=== PATIENT | female | born 1970 | race Caucasian/White ===

== ENCOUNTER 2016-07-02 17:20 | Emergency (ER) | payer OTHER ==
[~2016-07-02] VITALS: Ht 157.5 cm; Wt 89.5 kg
[~2016-07-02 17:20] MED LIST: MDR150V IM
[2016-07-02 17:28] VITALS: BP 142/96; PULSE 82; RESP 16; O2SAT 100
--- NOTE | 2016-07-02 19:16 | ED.REPORT ---
HPI-General Illness Date of Service Jul 02, 2016 ED Provider: Costa Padgett PA-C Maribel is a 41-year-old female presents with chief complaint of perioral numbness and tingling. Patient states she is expressed about 2 weeks of perioral numbness and tingling associated with tingling in her fingers and generalized pruritus over her arms and body. He reports measuring a fever up to 99, cough, nasal congestion, rhinorrhea, fatigue, unintentional weight loss of 11 pounds over the last week, several episodes of vomiting over the last 3 days (nonbloody), dizziness which she describes as a sensation of the world spinning around her. She also reports the onset of right posterior lateral neck pain about 3 hours ago. Admits a history of palpitations. She denies: difficulty breathing for swallowing, falls, changing medications, foods or detergents detergents. She does attempt to treat her pruritus with Benadryl, which did not find helpful. She attempted to treat her neck pain with ibuprofen , which did not find helpful. Patient is quite unhappy to be seen in the hallway, and frustrated because she feels as though she is being dismissed. She expresses certainty that "something is wrong" and had was to find answers. She reports a history of cardiomyopathy and endocarditis, and recalls that she felt similar perioral numbness and tingling during that time. Nursing Notes Stated Complaint: NECK PAIN Chief Complaint: Allergic Reaction Nursing Notes Reviewed: Yes Allergies: Coded Allergies: Quinolones (Verified Allergy, Unknown, 07/02/16) metoclopramide (Verified Adverse Reaction, Intermediate, jitters, 07/02/16) promethazine (Verified Adverse Reaction, Intermediate, Agitation, 07/02/16) Scheduled Medroxyprogesterone Acetate (Depo-Provera) 150 Mg/Ml Depoinj 150 MG IM q3 months General Time Seen by MD: 18:12 Chief Complaint Other (perioral tingling) Past Medical History Smoking History Never Smoker Review of Systems General: Admits fever, fatigue, malaise. HEENT: Admits congestion, headache, sore throat. Respiratory: Denies dyspnea, cough, shortness of breath, wheezing. Cardiovascular: Denies chest pain, admits palpitations. Gastrointestinal: Admits vomiting, denies diarrhea, abdominal pain. Genitourinary: Denies frequency, urgency, dysuria, hematuria. Otherwise as noted in HPI. Physical Exam General: Well appearing, well developed, well nourished, no acute distress. Head: Atraumatic, normocephalic. No mastoid tenderness. Eyes: No scleral icterus or injection. No discharge. PERRL. Vision grossly intact. Ears: Pinna and tragus nontender with manipulation. External auditory canal patent, atraumatic and without discharge. Tympanic membrane ibrahim, shiny and translucent without fluid, bulging, retraction or perforation. Hearing grossly intact. Nose: Symmetrical, nares patent without discharge. No frontal or maxillary sinus tenderness. Mouth/pharynx: No swelling or rash noted. Normal dentition, mucus membranes moist. Tonsils 2+ and symmetrical, uvula midline. Pharynx noninjected, no cobblestoning or discharge. Voice clear. Neck: No tenderness or lymphadenopathy. Trachea midline. Respiratory: Regular rate and rhythm. Breath sounds present, clear to auscultation and equal bilaterally. Cardiovascular: Regular rate and rhythm, without murmur, gallop or rub. No pedal edema. Gastrointestinal: Abdomen flat and non-tender without guarding or rebound. Bowel sounds normoactive. Skin: Skin forearms is red with mild excoriation. Warm and dry. Neurological: Grossly nonfocal. Psychological: Alert and oriented. Speech appropriate, linear and logical. Behavior appropriate. Vital Signs Vital Signs Date Time Temp Pulse Resp B/P Pulse Ox O2 Delivery O2 Flow Rate FiO2 07/02/16 17:28 36.8 82 16 142/96 100 Room Air Initial VS: Reviewed, Vital signs normal Re-Eval/Medical Decision Med Decision/Clinical Course 45-year-old woman presents with a variety of complaints, including perioral numbness and tingling, finger numbness and tingling generalized pruritus, nasal congestion, rhinorrhea, cough, fatigue. Patient is quite upset at being seen in the hallway and repeatedly states that "I know something is wrong." She gives the impression that she feels dismissed. I considered the possibility of a allergic reaction but she denies any new exposures including medication, food. No findings of upper respiratory swelling on physical examination or indication of anaphylaxis. I admitted to the patient that I was unsure of what to make of her presentation and told her that I will be having Dr. Avila see her. I offered her hydroxyzine for her pruritus. She was amenable to both. I discussed case with Dr. Avila who agreed to see the patient. The patient had departed by the time the nurse prepared to dispense hydroxyzine, and she was not seen by Dr. Avila. Discharge & Departure Primary Impression: Pruritus Referrals: Aida Mandujano DO (PCP) EDSupervising Provider for APC: Yovany Avila MD copies to: Aida Mandujano Seth PA-C Jul 02, 2016 19:16
== END 2016-07-02 19:00 | disposition home or self-care (01) ==
LOC: SED 17:20
DX: L29.9 Pruritus, unspecified (principal); M54.2 Cervicalgia; R50.9 Fever, unspecified; R05 Cough; R09.81 Nasal congestion; J34.89 Other specified disorders of nose and nasal sinuses; R53.83 Other fatigue; R63.4 Abnormal weight loss; Z88.8 Allergy status to other drugs, medicaments and biological substances

== ENCOUNTER 2016-08-16 15:40 | Emergency (ER) | payer OTHER ==
[~2016-08-16] VITALS: Ht 157.5 cm; Wt 88.6 kg
[2016-08-16 15:42] VITALS: BP 133/84; PULSE 86; RESP 16; O2SAT 97
[2016-08-16 17:33] LABS: BASOPHILS % (AUTO) 0.1 % (0-3); EOSINOPHILS % (AUTO) 0.4 % (0-5); MONOCYTES % (AUTO) 6.2 % (4-12); Mean Corpuscular Hemoglobin 30.4 pg (27.0-35.0); Mean Corpuscular Volume 87.2 fL (81-100); NEUTROPHILS % (AUTO) 61.5 % (40-74); Platelet Count 237 bil/L (150-400)
[2016-08-16 17:57] LABS: Magnesium 1.9 mg/dL (1.6-2.6)
--- NOTE | 2016-08-16 18:07 | ED.REPORT ---
HPI-Abd Pain F 40 and Over Date of Service Aug 16, 2016 ED Provider: Bernabe Alvarez DO A 45 year old female with a history of appendectomy, laparoscope for adhesions, , tubal ligation, ablation, and cholecystectomy presents to the ED complaining of lower pelvic pain. The pain began three days ago and radiates into her back. The pt describes that pain as "something sitting on her pelvic floor" and putting pressure on the front of her vagina and her rectum. The pt denies symptoms of vaginal prolapse. Nursing Notes Stated Complaint: ABDOMINAL PAIN Chief Complaint: Female Abdominal Pain Nursing Notes Reviewed: Yes Allergies: Coded Allergies: metoclopramide (Verified Adverse Reaction, Intermediate, jitters, 08/16/16) promethazine (Verified Adverse Reaction, Intermediate, Agitation, 08/16/16) Scheduled Medroxyprogesterone Acetate (Depo-Provera) 150 Mg/Ml Depoinj 150 MG IM q3 months General Time Seen by MD: 18:06 Chief Complaint Pelvic pain Hx Obtained From: Patient Arrived By: Walk-in Sudden in Onset?: No Onset Occurred: 3 days ago Symptom Duration: Since onset Recent Healthcare: No recent hospitalization, Recent doctor visit Similar Sx Previous: No Past Medical History Past Medical History diverticulosis pericarditis and cardiomyopathy 17 years ago UTI hemorrhoids kidney stones Past Surgical History tubal ligation laparoscope for adhesions adenolysis x2 breast reduction ablation Reports: Appendectomy, Cholecystectomy Smoking History Never Smoker Ambulatory Status Independent Review of Systems denies symptoms of vaginal prolapse Constitutional: Denies: Fever Respiratory: Denies: Non-productive cough Cardiovascular: Denies: Chest pain GI: Denies: Vomiting Female: Reports: Pelvic pain Musculoskeletal: Reports: Back pain, Denies: Neck pain Complete sys rev & neg: except as marked. Physical Exam Vital Signs Vital Signs (First) Date Time Temp Pulse Resp B/P Pulse Ox O2 Delivery O2 Flow Rate FiO2 08/16/16 15:42 37.1 86 16 133/84 97 Room Air Initial VS: Reviewed General/Constitutional: Awake, Alert moderate distress due to pain Respiratory / Chest: Atraumatic, Breath sounds NL, Breath sounds = bilat, No respiratory distress Cardiovascular: Heart rate NL, Regular rhythm, Heart sounds NL Abdomen: Atraumatic, Soft suprapubic tenderness no mass Back: Atraumatic, Full range of motion Head / Eyes: Atraumatic, Normocephalic, PERRL, EOMI ENT: Atraumatic, Airway patent, Mucous membranes moist Skin: Atraumatic, Color NL, No rash, Warm, Dry Female Genitourinary: Playground Equipment Erector present, Atraumatic, External genitalia NL, No cervical motion tend fullness in the posterior pelvic floor Neurologic: Oriented X3, Speech NL, No motor deficits, No sensory deficits Neck: Atraumatic, Supple, Full range of motion Upper Extremity / MS: Atraumatic, Full range of motion Lower Extremity / Pelvis / MS: Atraumatic, Full range of motion Psychiatric: Affect NL, Mood NL Interpretation & Diagnostics Interpretation & Diagnostics: Pelvis US: IMPRESSION: 1. Overall unremarkable pelvic ultrasound. No findings to explain patient's pain. 2. Simple left ovarian cyst which is within physiologic limits in a premenopausal female. Dictated by: Chiquita Wilson M.D. on 08/16/2016 at 21:39 Approved by: Chiquita Wilson M.D. on 08/16/2016 at 21:42 Lab Results Interpretation Result Diagram: 08/16/16 1720 08/16/16 1720 Test 08/16/16 17:20 08/16/16 17:23 White Blood Count 6.8th/mm3 (3.8-10.1) Red Blood Count 4.37mil/mm3 (3.90-5.20) Hemoglobin 13.3g/dL (12.0-15.6) Hematocrit 38.1% (35.0-46.0) Mean Corpuscular Volume 87.2fL (81-100) Mean Corpuscular Hemoglobin 30.4pg (27.0-35.0) Mean Corpuscular Hemoglobin Concent 34.9% (32.0-37.0) Red Cell Distribution Width 12.3% (12.3-15.4) Platelet Count 237bil/L (150-400) Neutrophils (%) (Auto) 61.5% (40-74) Lymphocytes (%) (Auto) 31.7% (14-46) Monocytes (%) (Auto) 6.2% (4-12) Eosinophils (%) (Auto) 0.4% (0-5) Basophils (%) (Auto) 0.1% (0-3) Sodium Level 135mEq/L (134-144) Potassium Level 4.3mEq/L (3.5-5.2) Chloride Level 100mEq/L (97-108) Carbon Dioxide Level 24mmol/L (18-29) Blood Urea Nitrogen 13mg/dL (6-24) Creatinine 0.79mg/dL (0.57-1.00) Estimat Glomerular Filtration Rate 113mL/min (>59) Glucose Level 103mg/dL (60-99) Calcium Level 9.7mg/dL (8.5-10.1) Magnesium Level 1.9mg/dL (1.6-2.6) Total Bilirubin 0.3mg/dL (0.0-1.2) Aspartate Amino Transf (AST/SGOT) 19U/L (0-50) Alanine Aminotransferase (ALT/SGPT) 15U/L (0-32) Alkaline Phosphatase 62U/L (25-150) Total Protein 6.5g/dL (6.4-8.4) Albumin 4.2g/dL (3.4-5.0) Lipase 27U/L (13-60) HCG Beta Subunit 0.500mIU/mL Urine Color Yellow (YELLOW) Urine Appearance Clear (CLEAR,HAZY) Urine pH 6.0 (5.0-8.0) Urine Specific Baker 1.025 (1.003-1.035) Urine Protein Negativemg/dL (NEG,TRACE) Urine Glucose (UA) Negativemg/dL (NEGATIVE) Urine Ketones Negativemg/dL (NEGATIVE) Urine Occult Blood Negative (NEGATIVE) Urine Nitrite Negative (NEGATIVE) Urine Bilirubin Negative (NEGATIVE) Urine Urobilinogen Normalmg/dL (NORMAL) Urine Leukocyte Esterase Negative (NEGATIVE) Urine RBC 0-2/hpf (0-2) Urine WBC 0-5/hpf (0-5) Urine Epithelial Cells Moderate/hpf (NONE-MOD) Urine Crystals None seen (NONE SEEN) Urine Bacteria Many/hpf (NONE-FEW) Urine Hyaline Casts None/lpf (NONE) Urine Granular Casts None seen (NONE SEEN) Urine Waxy Casts None seen (NONE SEEN) Urine Red Blood Cell Casts None seen (NONE SEEN) Urine White Blood Cell Casts None seen (NONE SEEN) Urine Mucus Present (None Seen) Urine Trichomonas None seen (NONE SEEN) Urine Yeast None (NONE SEEN) Urinalysis Comment None Urine Culture Reflexed Indicated Hold Urine Received (Received) CT Abd / Pelvis Interpretation CONCLUSION: Diverticulosis with no evidence of diverticulitis. No evidence of obstructuve uropathy. Status post cholecystectomy. Interpretation / Wet Read by: Interpret - Radiologist Pulse Oximetry Interpretation Pulse Oximetry Interpretation: 97% on room air Pulse Oximetry: Pulse Ox normal Re-Eval/Medical Decision Source of Hx: Old records Re-Evaluation/Progress #1: Time of Eval: 19:10 Patient Status: Condition improved Re-Evaluation/Progress Note: Pt rechecked, who is comfortable. Pelvic examination is performed. Re-Evaluation/Progress #2: Time of Eval: 21:47 Patient Status: Condition improved Re-Evaluation/Progress Note: Pt rechecked, who is comfortable. She is informed of plan for US and further treatment. The pt agrees with the plan. Re-Evaluation/Progress #3: Time of Eval: 21:37 Re-Evaluation/Progress Note: Pt rechecked, who is still experiencing pain. Further treatment and need for pelvic exam are discussed. Re-Evaluation/Progress #4: Time of Eval: 22:55 Patient Status: Condition improved Re-Evaluation/Progress Note: Pt rechecked, whose condition has improved. Diagnosis and the plan for discharge are discussed. The pt understands and agrees with the plan. All questions are addressed at this time. Counseled Regarding: Diagnosis, Lab results, Need for follow-up, When/why to return to ED Discharge & Departure Primary Impression: Pelvic pain Disposition: Home Discharge Condition All VS Reviewed: Yes Condition: Stable Patient Instructions: Chronic Pelvic Pain in Women (ED) Additional Instructions: Your ultrasound and CT scan did not show any acute pathology, though your ultrasound did show a Nabothian cyst 1 cm in size. This may be the cause of your pain and needs gynecologic evaluation. Call tomorrow to arrange a follow up appointment with gynecology. We are sending your urine out for culturing and pelvic infection testing. The results of these tests should be back in three days. You will need to follow up with your primary care physician or atmospheric drier tender to discuss the findings. Call tomorrow to arrange this follow up appointment. Take 1-2 Percocet every 6 hours as needed for severe pain. Do not drink, drive, or consume acetaminophen while taking the Percocet. The cause of your pain is uncertain and needs close follow up. Return to the emergency department if you develop any new or worsening symptoms. Referrals: [facility] (PCP) Mary Costa MD Scribe Attestation Portions of this note were transcribed by Kristy Bautista. I, Dr. Alvarez personally performed the history, physical exam and medical decision-making; I reviewed and confirmed the accuracy of the information in the transcribed note. Signed by: Carlyle Rincon, 08/16/2016 and 2313. copies to: Mary Costa MD; [facility] Bernabe Alvarez DO Aug 16, 2016 18:07 KRISTY BAUTISTA Aug 16, 2016 18:14
[2016-08-16] MEDS ORDERED: Ondansetron 2 mg/mL 2 mL Inj IVPUSH PRN (18:20)
[2016-08-16] MEDS: HYDROmorphone 0.5 mg/0.5 mL iSecure Syringe IVPUSH PRN ×4 (18:35→23:40)
[2016-08-16 18:42] LABS: APPEARANCE,URINE CLEAR (CLEAR,HAZY); COLOR,URINE YELLOW (YELLOW); OCCULT BLOOD,URINE NEGATIVE (NEGATIVE); UROBILINOGEN,URINE NORMAL (NORMAL)
[2016-08-16 19:18] VITALS: BP 146/85; PULSE 71; RESP 16; O2SAT 96
--- NOTE | 2016-08-16 21:44 | DRSVH ---
PROCEDURE: US PELVIC SONOGRAM + TRANSVAGINAL SONOGRAM INDICATIONS: severe pelvic pain, TECHNIQUE: Real-time scanning was performed of the pelvic organs, with image documentation. Additional endovagi nal scanning was necessary due to incomplete visualization of the adnexal and endometrial structures by transabdominal scanning. COMPARISON: None. FINDINGS: Transabdominal scanning: Limited scanning through the kidneys shows no hydronephrosis. 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 No pathologic free abdominal or pelvic fluid. Endovaginal scanning: Uterus: Uterus is normal in size at 8.1 x 3.7 x 4.8 cm. The endometrium is has been ablated and is not visualized. A 4.3 mm diameter cyst is present at the endometrial fundus. There are multiple nabot hian cysts. One has a complex appearance and measures 1.0 cm in diameter. Ovaries: The right ovary measures 1.8 x 1.6 x 1.9 cm and has a normal echotexture. The left ovary som sures 2.2 x 2.6 x 2.3 cm. There is a simple 1.9 cm diameter left ovarian cyst. IMPRESSION: 1. Overall unremarkable pelvic ultrasound. No findings to explain patient's pain. 2. Simple left ovarian cyst which is within physiologic limits in a premenopausal female. Dictated by: Chiquita Wilson M.D. on 08/16/2016 at 21:39 Approved by: Chiquita Wilson M.D. on 08/16/2016 at 21:42
[2016-08-16 22:36] VITALS: BP 150/89; PULSE 87; RESP 19; O2SAT 99
[2016-08-16] MEDS ORDERED: _oxyCODONE/APAP 5-325 mg Tablet PO PRN (23:05)
[2016-08-16 23:40] VITALS: BP 134/90; PULSE 71; RESP 16; O2SAT 95
[2016-08-17] MEDS ORDERED: Sodium Chloride LOK Flush 10 mL Syringe IVFLUSH SCH (00:30)
--- NOTE | 2016-08-17 08:39 | DRSVH ---
PROCEDURE: CT ABDOMEN AND PELVIS WITH CONTRAST ([id number]) INDICATIONS: severe LLQ and pelvic pain, US unremarkable TECHNIQUE: After the administration of intravenous contrast, 5 mm thick sections acquired from the diaphragm to the symphysis. 5 mm coronal and sagittal reformats were acquired. For radiation dose reduction, the following was used: automated exposure control, adjustment of mA and/or kV according to patient antonia e. COMPARISON: [facility], US, US PELVIC+TRANSVAG, 08/16/2016, 19:16. [facility], CT, ABD/PELVIS W/CON (PNL), 07/19/2014, 18:38. [facility], CT, ABD/PELVIS W/CON (PNL), 12/07/2012, 0:32. FINDINGS: Image quality: Excellent. ABDOMEN: Lung bases: Lung bases are clear. Heart size is normal. Solid organs: Right left hepatic lobe cysts are unchanged. Liver and spleen are otherwise normal in size and enhancement. Gallbladder is surgically absent. Biliary system is non dilated. Pancreas en hances normally. No adrenal nodules. Kidneys demonstrate normal size and enhancement, without hydro nephrosis. Peritoneum and bowel: Bowel loops demonstrate normal wall thickness and caliber. No free fluid or a ir. Diverticulosis of the descending and sigmoid colon. Nodes and vessels: No retroperitoneal or mesenteric adenopathy by size criteria. Aorta and inferior vena cava are normal in size. Miscellaneous: There is a new, 33 mm diameter fat-containing anterior pelvic wall hernia which demons trates mild fat stranding. 10 mm fat-containing umbilical hernia. PELVIS: Genitourinary: Bladder wall thickness is normal. There is enlargement of the lower uterine segment, as before, with heterogeneous low density. Miscellaneous: No inguinal hernias or adenopathy. Bones: No suspicious bony lesions. No vertebral body compression fractures. IMPRESSION: 1. Fat containing anterior pelvic wall hernia, which demonstrates mild groundglass density within it, possibly indicating strangulation. 2. No change in appearance of lower uterine segment, which is enlarged and demonstrates heterogeneous low density shearing 3. Appendix not seen. No evidence of appendicitis. 4. Findings discussed with Dr. Brown on 08.17.16 at 0838 hrs. Dictated by: Azar Waldron M.D. on 08/17/2016 at 8:25 Approved by: Azar Waldron M.D. on 08/17/2016 at 8:38
[2016-08-17] MEDS ORDERED: DOXE10CA PO (23:05)
[2016-08-17] MEDS ORDERED: LORA0.5T PO (23:05)
[2016-08-17] MEDS ORDERED: LAMO200T2 PO (23:05)
[2016-08-17] MEDS ORDERED: HYDR-3797 PO (23:05)
[2016-08-17] MEDS ORDERED: ACYC400T2 PO (23:05)
[2016-08-17] MEDS ORDERED: ESCI20TA PO (23:05)
== END 2016-08-16 23:40 | disposition home or self-care (01) ==
LOC: SED 15:40
DX: R10.2 Pelvic and perineal pain (principal); K40.30 Unilateral inguinal hernia, with obstruction, without gangrene, not specified as recurrent; Z90.49 Acquired absence of other specified parts of digestive tract; Z90.89 Acquired absence of other organs; Z88.8 Allergy status to other drugs, medicaments and biological substances
CPT/HCPCS: 36415; 74177; 76830; 76856; 80053; 81000; 81025; 83690; 83735; 84702; 85025; 87086; 87088; 87491; 87591; 96374; 96375; 96376; 99285; J1170; J1885; J2405; Q9967

== ENCOUNTER 2016-08-17 19:02 | Observation (INO) | payer OTHER ==
[~2016-08-17] VITALS: Ht 157.5 cm; Wt 90.2 kg
[2016-08-17] MEDS ORDERED: 0.9% Sodium Chloride 1,000 ML IV ONE (19:08)
--- NOTE | 2016-08-17 19:08 | ED.REPORT ---
HPI-Abd Pain F 40 and Over Date of Service Aug 17, 2016 ED Provider: Bernabe Alvarez DO Patient is a 45 year old female with a history of multiple abdominal surgeries presents to the ED complaining of ongoing severe pelvic pain that began 4 days ago. Patient was evaluated for this pain yesterday evening, with no acute problem identified on her abdominal CT by [facility]. However her scan was read by Dr. Waldron of [facility] today, which found an anterior pelvic wall fat containing hernia with possible strangulation. Patient was told to present to the ED for further evaluation after she reported ongoing pain. She was discharged yesterday with Percocet, which has not improved her symptoms. She was unable to work today due to pain. Patient has previously had an appendectomy, , tubal ligation, ablation, cholecystectomy, and lysis of adhesions. Patient denies any other complaints at this time. Nursing Notes Stated Complaint: ABDOMINAL PAIN Nursing Notes Reviewed: Yes Allergies: Coded Allergies: metoclopramide (Verified Adverse Reaction, Intermediate, Jitters, Agitation, "Makes me want to rip my skin off", 08/17/16) Zofran ok prochlorperazine (Verified Adverse Reaction, Intermediate, Agitation, "Makes me want to rip my skin off", 08/17/16) Zofran ok promethazine (Verified Adverse Reaction, Intermediate, Agitation, "Makes me want to rip my skin off", 08/17/16) Zofran ok Scheduled Escitalopram Oxalate (Lexapro) 20 Mg Tablet 20 MG PO HS Lamotrigine (Lamotrigine) 200 Mg Tablet 200 MG PO BID Scheduled PRN Acyclovir (Acyclovir) 400 Mg Tablet 400 MG PO TID PRN PRN HERPES OUTBREAK Doxepin (Doxepin) 10 Mg Capsule 10 MG PO HS PRN PRN For Insomnia Hydroxyzine Pamoate (HydrOXYzine Pamoate) 25 Mg Capsule 25 MG PO Q6 PRN PRN For Itching Lorazepam (Lorazepam) 0.5 Mg Tablet 1 MG PO TID PRN PRN For Anxiety General Time Seen by MD: 19:07 Chief Complaint Abdominal pain Hx Obtained From: Patient Arrived By: Walk-in Sudden in Onset?: No Onset Occurred: 4 days ago Symptom Duration: Since onset Location: : Suprapubic Quality: Painful Severity: Current: Moderate Severity: Maximum: Severe Recent Healthcare: Recent doctor visit Similar Sx Previous: Yes Past Medical History Past Medical History diverticulosis pericarditis and cardiomyopathy 17 years ago UTI hemorrhoids kidney stones Past Surgical History tubal ligation laparoscope for adhesions adenolysis x2 breast reduction ablation Reports: Appendectomy, Cholecystectomy Smoking History Never Smoker Social History Other Social History: Local resident Ambulatory Status Independent Review of Systems Constitutional: Denies: Chills, Fever GI: Reports: Abdominal pain, Denies: Diarrhea, Nausea, Vomiting Female: Denies: Dysuria, Flank pain Complete sys rev & neg: except as marked. Physical Exam Vital Signs Vital Signs (First) Date Time Temp Pulse Resp B/P Pulse Ox O2 Delivery O2 Flow Rate FiO2 08/17/16 19:12 36.9 68 15 134/82 100 Room Air Initial VS: Reviewed Head / Eyes: Atraumatic, Normocephalic, PERRL ENT: Mucous membranes moist, Conjunctiva normal, No scleral icterus Neck: Supple, Full range of motion Extremities: Vascular intact, Neuro intact Skin: Warm, Dry, No cyanosis Neurologic: Alert, Oriented, Nonfocal Psychiatric: Mood/affect normal, Behavior normal, Normal thought content General/Constitutional: Awake, Alert, No acute distress Respiratory / Chest: Breath sounds NL, Breath sounds = bilat, No respiratory distress, No rales, No rhonchi, No wheezing Cardiovascular: Heart rate NL, Regular rhythm, Heart sounds NL, No murmurs Abdomen: Soft Tenderness/Guarding/Rebound: Positive: Tender suprapubic Back: No CVA tenderness Interpretation & Diagnostics Lab Results Interpretation Result Diagram: 08/18/16 0640 08/18/16 0640 Test 08/17/16 19:35 Lactic Acid Level 0.8mmol/L (0.4-2.0) Lipase 25U/L (13-60) Re-Eval/Medical Decision Source of Hx: Old records Re-Evaluation/Progress #1: Time of Eval: 20:15 Re-Evaluation/Progress Note: Rechecked the patient to discuss the results of her CT scan from last night. She will be given Morphine and Toradol for pain control. Will review the CT scan and contact the on-call surgeon. Re-Evaluation/Progress #2: Time of Eval: 21:27 Patient Status: Condition improved Re-Evaluation/Progress Note: Rechecked the patient. Informed her of the consult with Dr. Rojas. The hernia will be repaired electively in the future. Patient reports mild improvement of her pain. She will be given additional pain medication. If needed, she will be admitted to the hospital for pain control. Re-Evaluation/Progress #3: Time of Eval: 22:19 Re-Evaluation/Progress Note: Informed the patient of plan for hospital admission. Patient understands and agrees with this plan. All questions were addressed. Consultation #1: Referral / Consult Name: Crow Rojas MD Consulted With: Surgeon Call Returned at: 20:19 Note: Spoke with Dr. Rojas, surgeon, about the patient's CT result. He states that there is nothing to be done about this complaint emergently. If pain is uncontrollable, can admit her for pain control. Consultation #2: Referral / Consult Name: Mandeep Roblero MD Consulted With: Hospitalist Call Returned at: 22:10 Medical Laboratory Assistant: Will see patient, Agrees with eval, Agrees with plan, Accepts admit Note: Spoke with Dr. Roblero, hospitalist, who agrees to accept admit. Consultation #3: Referral / Consult Name: Crow Rojas MD Consulted With: Surgeon Call Returned at: 22:18 Medical Laboratory Assistant: Will see patient, Agrees with plan Note: Informed Dr. Rojas of the plan for hospital admission. He agrees to act as consult. Counseled Regarding: Diagnosis, Lab results, Need for admission Discharge & Departure Primary Impression: Intractable abdominal pain Additional Impression: Abdominal wall hernia Disposition: Home Discharge Condition All VS Reviewed: Yes Condition: Stable Referrals: [facility] (PCP) Crow Rojas MDibale Attestation Portions of this note were transcribed by Silvana Henry. I, Dr. Alvarez personally performed the history, physical exam and medical decision-making; I reviewed and confirmed the accuracy of the information in the transcribed note. Signed by: Carlyle Leyva, 08/17/2016 [id number] copies to: Crow Rojas MD; [facility] Bernabe Alvarez DO Aug 17, 2016 19:08 Silvana Henry Aug 17, 2016 19:25 Alkaline Phosphatase 74U/L (25-150) Total Protein 6.7g/dL (6.4-8.4) Albumin 4.1g/dL (3.4-5.0) Lipase 25U/L (13-60) Re-Eval/Medical Decision Source of Hx: Old records Re-Evaluation/Progress #1: Time of Eval: 20:15 Re-Evaluation/Progress Note: Rechecked the patient to discuss the results of her CT scan from last night. She will be given Morphine and Toradol for pain control. Will review the CT scan and contact the on-call surgeon. Re-Evaluation/Progress #2: Time of Eval: 21:27 Patient Status: Condition improved Re-Evaluation/Progress Note: Rechecked the patient. Informed her of the consult with Dr. Rojas. The hernia will be repaired electively in the future. Patient reports mild improvement of her pain. She will be given additional pain medication. If needed, she will be admitted to the hospital for pain control. Re-Evaluation/Progress #3: Time of Eval: 22:19 Re-Evaluation/Progress Note: Informed the patient of plan for hospital admission. Patient understands and agrees with this plan. All questions were addressed. Consultation #1: Referral / Consult Name: Crow Rojas MD Consulted With: Surgeon Call Returned at: 20:19 Note: Spoke with Dr. Rojas, surgeon, about the patient's CT result. He states that there is nothing to be done about this complaint emergently. If pain is uncontrollable, can admit her for pain control. Consultation #2: Referral / Consult Name: Mandeep Roblero MD Consulted With: Hospitalist Call Returned at: 22:10 Medical Laboratory Assistant: Will see patient, Agrees with eval, Agrees with plan, Accepts admit Note: Spoke with Dr. Roblero, hospitalist, who agrees to accept admit. Consultation #3: Referral / Consult Name: Crow Rojas MD Consulted With: Surgeon Call Returned at: 22:18 Medical Laboratory Assistant: Will see patient, Agrees with plan Note: Informed Dr. Rojas of the plan for hospital admission. He agrees to act as consult. Counseled Regarding: Diagnosis, Lab results, Need for admission Discharge & Departure Primary Impression: Intractable abdominal pain Additional Impression: Abdominal wall hernia Disposition: Home Discharge Condition All VS Reviewed: Yes Condition: Stable Referrals: [facility] (PCP) Crow Rojas MD Scribe Attestation Portions of this note were transcribed by Silvana Henry. Dr. Goran Kearneyia personally performed the history, physical exam and medical decision-making; I reviewed and confirmed the accuracy of the information in the transcribed note. Signed by: Carlyle Leyva, 08/17/2016 2223 copies to: Crow Rojas MD; [facility] Bernabe Alvarez DO Aug 17, 2016 19:08 Silvana Henry Aug 17, 2016 19:25
[2016-08-17] MEDS ORDERED: Ondansetron 2 mg/mL 2 mL Inj IVPUSH PRN (19:10)
[2016-08-17] MEDS ORDERED: HYDROmorphone 0.5 mg/0.5 mL iSecure Syringe IVPUSH PRN (19:10)
[2016-08-17 19:12] VITALS: BP 134/82; PULSE 68; RESP 15; O2SAT 100
[2016-08-17 19:51] LABS: BASOPHILS % (AUTO) 0.4 % (0-3); EOSINOPHILS % (AUTO) 1.1 % (0-5); Mean Corpuscular Volume 86.5 fL (81-100); NEUTROPHILS % (AUTO) 45.4 % (40-74); Platelet Count 228 bil/L (150-400)
[2016-08-17 21:13] VITALS: BP 117/68; PULSE 66; RESP 15; O2SAT 97
[2016-08-17] MEDS ORDERED: HYDROmorphone 1 mg/mL Inj IVPUSH PRN (22:20)
[2016-08-17] MEDS ORDERED: Alum-Mag Hydrox-Simeth 30 mL Suspension PO PRN (22:20)
[2016-08-17] MEDS ORDERED: Polyethylene Glycol (PEG) 17 Gm Powder PO PRN (22:20)
[2016-08-17] MEDS ORDERED: HYDR-3797 PO (23:05)
[2016-08-17] MEDS ORDERED: DOXE10CA PO (23:05)
[2016-08-17] MEDS ORDERED: LORA0.5T PO (23:05)
[2016-08-17] MEDS ORDERED: ESCI20TA PO (23:05)
[2016-08-17] MEDS ORDERED: LAMO200T2 PO (23:05)
[2016-08-17] MEDS ORDERED: ACYC400T2 PO (23:05)
[2016-08-17 23:19] VITALS: BP 141/88; PULSE 82; RESP 15; O2SAT 97
[2016-08-17 23:39] VITALS: BP 128/83; PULSE 85; RESP 18; O2SAT 97
--- NOTE | 2016-08-17 23:50 | NUR ---
Pt admitted to room with all belongings, walked from stretcher to bed. Pt alert and oriented x4. Pain under control at this time, oriented to room and call light.
--- NOTE | 2016-08-18 00:31 | PCM.HPMED ---
Subjective Date of Service Aug 17, 2016 Primary Provider: Admitting Physician: Primary Care Physician: [place],[facility] Residency Attending Physician: Admit Status: From the Emergency Department, 23-Hour Observation, Non-Telemetry Chief Complaint: Abdominal pain History of Present Illness: Maribel Peterson is a 45 year old female with Depression,Anxiety and multiple abdominal surgeries presents to the Emergency department complaining of ongoing lower pelvic pain Patient reported that the pain began 4 days ago. Pain located in her lower abdomen bilaterally, pelvic pain, sensation of a mass stuck in her pelvis with radiation to her lower back. Associated with difficulty having bowel movements, states she felt like she has a rectocele and had to be in a certain position in order to have a bowel movement. Denies any melena or hematochezia. Denies any diarrhea, no nausea or vomiting. Patient was evaluated for this pain yesterday evening, with no acute problem identified on her abdominal CT by [facility]. However, her scan was read by Dr. Waldron of [facility] today, which found an anterior pelvic wall fat containing hernia with possible strangulation. Patient was told to present to the ED for further evaluation after she reported ongoing pain. She was discharged yesterday with Percocet, which has not improved her symptoms. She was unable to work today due to pain. Patient has previously had an appendectomy, , tubal ligation, ablation , cholecystectomy, and lysis of adhesions. Case discussed with Dr Alvarez, he spoke to Dr Rojas who will consult but no recommendation for any surgical intervention tonight. Admission to control her pain Review of Systems: Pertinent positives as noted in HPI. All other systems were reviewed and are negative Allergies Coded Allergies: metoclopramide (Verified Adverse Reaction, Intermediate, Jitters, Agitation, "Makes me want to rip my skin off", 08/17/16) Zofran ok prochlorperazine (Verified Adverse Reaction, Intermediate, Agitation, "Makes me want to rip my skin off", 08/17/16) Zofran ok promethazine (Verified Adverse Reaction, Intermediate, Agitation, "Makes me want to rip my skin off", 08/17/16) Zofran ok Home Medications From Maribel Tovar. [id number] 1970 07/06/2016 04:30 PM 06/03 acyclovir 400 mg tablet take 1 tablet by oral route every 8 hours for 7 days lamotrigine 100 mg tablet take 1 tablet by oral route 2 times every day Lexapro 20 mg tablet take 1 tablet by oral route every day lorazepam 0.5 mg tablet take 1 tab PO daily as needed for severe anxiety PMH Pneumonitis Recent bereavement Pelvic pain Menorrhagia Anxiety and depression Major depressive disorder, single episode, unspecified Acute nasopharyngitis HSV-1 infection . Surgical History bilateral tubal ligation Cholecystectomy Breast reduction Appendectomy C section Diagnostic laparoscopy Family History Father has Diabetes and Hypertension Social History Hx Alcohol Use: Yes (occasionally) Hx Substance Use: No Hx Tobacco Use: No Smoking Status: Never Smoker Living Arrangement: with Family Exam Vital Signs Vital Sign - Last Date Time Temp Pulse Resp B/P Pulse Ox O2 Delivery O2 Flow Rate FiO2 08/17/16 21:13 66 15 117/68 97 Room Air 08/17/16 19:12 36.9 Exam General: Alert, Oriented X3, Cooperative, No acute Distress Eyes: PERRLA, Scleral Anicteric Mouth: Mouth Normal, Mucous Membranes Moist/[place] Neck: Supple, no Thyromegaly, trachea central. Chest & Lungs: Clear to auscultation & percussion, No adventitious breath sounds, no crackles, no wheeze Cardiovascular: Normal S1, Normal S2, No Murmurs/Rubs/Gallops, Regular Rate/ Rhythm, (No JVD, no peripheral edema) Pulses: Radial (present and equal), Dorsalis Pedi (present and equal) Abdomen: Soft, tenderness around pelvic area, no rebound, Non-distended, Normoactive bowel tones. Musculoskeletal: Unremarkable. Normal range of motion, no swollen or erythematous joints Extremities: No edema, no cyanosis, no clubbing. Skin: No rashes. Warm and dry, no erythematous areas Neurological: Grossly neurologically intact, Normal Speech, Sensation Intact Lymphatic: Lymph nodes Cervical and Axillary not palpable. Lab and Diagnostics Labs Laboratory Tests Test 08/17/16 19:35 White Blood Count 5.2th/mm3 (3.8-10.1) Red Blood Count 4.66mil/mm3 (3.90-5.20) Hemoglobin 14.0g/dL (12.0-15.6) Hematocrit 40.3% (35.0-46.0) Mean Corpuscular Volume 86.5fL (81-100) Mean Corpuscular Hemoglobin 30.0pg (27.0-35.0) Mean Corpuscular Hemoglobin Concent 34.7% (32.0-37.0) Red Cell Distribution Width 12.4% (12.3-15.4) Platelet Count 228bil/L (150-400) Neutrophils (%) (Auto) 45.4% (40-74) Lymphocytes (%) (Auto) 43.9% (14-46) Monocytes (%) (Auto) 9.0% (4-12) Eosinophils (%) (Auto) 1.1% (0-5) Basophils (%) (Auto) 0.4% (0-3) Sodium Level 138mEq/L (134-144) Potassium Level 4.0mEq/L (3.5-5.2) Chloride Level 103mEq/L (97-108) Carbon Dioxide Level 21mmol/L (18-29) Blood Urea Nitrogen 12mg/dL (6-24) Creatinine 0.80mg/dL (0.57-1.00) Estimat Glomerular Filtration Rate 112mL/min (>59) Glucose Level 88mg/dL (60-99) Lactic Acid Level 0.8mmol/L (0.4-2.0) Calcium Level 9.3mg/dL (8.5-10.1) Total Bilirubin 0.4mg/dL (0.0-1.2) Aspartate Amino Transf (AST/SGOT) 36U/L (0-50) Alanine Aminotransferase (ALT/SGPT) 37U/L (0-32) Alkaline Phosphatase 74U/L (25-150) Total Protein 6.7g/dL (6.4-8.4) Albumin 4.1g/dL (3.4-5.0) Lipase 25U/L (13-60) Result Diagram: 08/17/16193408/[id number] X-Rays, CTs and MRIs CT ABDOMEN AND PELVIS WITH CONTRAST 08/17 IMPRESSION: 1. Fat containing anterior pelvic wall hernia, which demonstrates mild groundglass density within it, possibly indicating strangulation. 2. No change in appearance of lower uterine segment, which is enlarged and demonstrates heterogeneous low density shearing 3. Appendix not seen. No evidence of appendicitis. 4. Findings discussed with Dr. Brown on 08.17.16 at 0838 hrs. Dictated by: Azar Waldron M.D. on 08/17/2016 at 8:25 Approved by: Azar Waldron M.D. on 08/17/2016 at 8:38 Assessment & Plan Maribel Peterson is a 45 year old female with Depression,Anxiety and multiple abdominal surgeries presents to the Emergency department complaining of ongoing lower pelvic pain 1. Acute Abdominal/Pelvic pain due to Anterior pelvic wall hernia with possible strangulation. Present on admission Dr Rojas recommends no surgical intervention at this point. NO liver dysfunction. - clear liquid diet, advance as tolerated - pain control with Morphine IV PRN and [place] PO PRN - Surgical consult requested - consider a Gynecological evaluation tomorrow 2. Depression and Anxiety. Chronic Mood stable - continue Lamotrigine and Lexapro - Acetaminophen as needed for mild pain/fever/headache - Bowel regimen as needed - Antiemetic as needed Patient is admitted under observation status with expected length of stay less than 2 midnights due to severity of presenting symptoms, risk of adverse event, and complexity of treatment plan. . Resuscitation Status: CPR: Attempt Resuscitation Mandeep Roblero MD Aug 17, 2016 22:23
[2016-08-18] MEDS ORDERED: diphenhydrAMINE 25 mg Capsule PO PRN (02:00)
[2016-08-18] MEDS: 0.9% Sodium Chloride 1,000 ML IV SCH ×4 (02:18→22:29)
[2016-08-18] MEDS: HYDROcodone-APAP 5-325 mg Tablet PO PRN ×3 (02:32→21:06)
--- NOTE | 2016-08-18 02:35 | NUR ---
Itching Pt complained of itching, paged night hospitalist and obtained orders for benedryl. 25 mg Zofran given with good results. Will continue to monitor
[2016-08-18 04:09] VITALS: BP 100/63; PULSE 82; RESP 18; O2SAT 95
[2016-08-18 07:16] LABS: BASOPHILS % (AUTO) 0.2 % (0-3); MONOCYTES % (AUTO) 8.7 % (4-12); Mean Corpuscular Hemoglobin 30.1 pg (27.0-35.0); Mean Corpuscular Volume 88.8 fL (81-100); NEUTROPHILS % (AUTO) 41.9 % (40-74); Platelet Count 208 bil/L (150-400)
[2016-08-18] MEDS: lamoTRIgine 100 mg Tablet PO SCH ×2 (08:43→21:06)
[2016-08-18] MEDS: LORazepam 1 mg Tablet PO PRN ×2 (08:43→18:02)
[2016-08-18] MEDS: Ondansetron 2 mg/mL 2 mL Inj IVPUSH PRN (08:44)
[2016-08-18 09:20] VITALS: BP 111/76; PULSE 78; RESP 16; O2SAT 97
--- NOTE | 2016-08-18 09:38 | CONS ---
[address] [address] CONSULTATION REPORT PATIENT: USAMA FRANKEL : 1970 MR#: [id number] ADMIT: 08/17/2016 JOB ID: [id number] DATE OF SERVICE: 08/18/2016 SURGICAL CONSULTATION: REASON FOR CONSULTATION: The patient is seen in consultation at the request of Dr. Bernabe Alvarez regarding further evaluation and management of a possible symptomatic abdominal wall hernia. HISTORY OF PRESENT ILLNESS: The patient is a 45-year-old female, who over the weekend developed what she describes as significant constipation. She drank some tea to help with this, subsequently had limited episode of diarrhea, but continued to have symptoms of pelvic fullness and pain. She has had no bowel movements since. Because of these symptoms, she presented to our emergency department on Tuesday. At that time her evaluation was unrevealing. She had a normal white blood cell count. A CT scan was obtained as well as a pelvic ultrasound. The pelvic ultrasound showed a simple left ovarian cyst. The CT scan was originally read as unremarkable. There was an over-read which showed a fat-containing anterior pelvic wall hernia which demonstrates mild ground glass density within it possibly indicating strangulation. The patient re-presented yesterday again with this complaint of pelvic pain which she describes as a fullness and pressure sensation. Because this pain is unremitting and she required significant doses of morphine to provide some relief, the decision was made to admit her. I was consulted with the thought that perhaps this abdominal wall hernia may be causing her pain. Upon questioning, the patient denies having had symptoms like this before. However, she does tell me she has been having trouble with bowel movements for quite some time. She has difficulty evacuating her rectum and finds that she has to move in certain positions to facilitate this. She also has to push her finger into her vagina to reduce which she describes as a rectocele to facilitate bowel movements. PAST MEDICAL HISTORY: 1. Depression and anxiety. 2. Mitral valve regurgitation. PAST SURGICAL HISTORY: 1. C section. 2. Appendectomy. 3. Cholecystectomy. 4. Adhesiolysis performed twice by Gynecology. MEDICATIONS: Current medications include antidepressants. ALLERGIES: She has allergies to PHENERGAN and REGLAN. FAMILY HISTORY: Family history is reviewed and is significant for father who at age 80 with diffuse metastatic cancer of unknown origin. REVIEW OF SYSTEMS: Full review of systems is obtained and significant for mild chronic nausea, a loss of appetite over the past few weeks, pain is described in the HPI. All other systems reviewed and negative. 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 PHYSICAL EXAMINATION: Vital signs: She has remained afebrile and hemodynamically normal since admission. This morning she is alert and oriented. She appears mildly uncomfortable, in no acute distress. Cardiovascular: She has a regular rate and rhythm with no appreciated murmurs, rubs, gallops. Pulmonary: Lungs clear to auscultation bilaterally. Vascular: She has no carotid bruit. Neck: There is no thyromegaly. Lymph: She has no cervical lymphadenopathy. GI: Her abdomen is soft, nondistended. She has mild tenderness to palpation predominantly in the left lower quadrant. Extremities: Warm without significant edema. Skin is warm without rash. Neuro is grossly intact. Psych is pleasant and appropriate. Inspection of anus demonstrates no fecal soilage. There are small skin tags but no significant external hemorrhoids. Digital rectal examination was performed. She had significant tenderness in her rectum and anal canal but no palpable nodules or masses. There is no stool in her rectal vault. LABORATORIES: White blood cell count obtained yesterday and this morning both normal. Her hematocrit is also normal. Her creatinine is also normal. IMAGING: CT scan of the abdomen and pelvis from Tuesday is personally reviewed and as per the HPI. There is a very small fat containing ventral hernia which is not in the area of the tenderness. There is not a significant stool burden. Specifically, there is no stool in the rectum. ASSESSMENT AND PLAN: This is a 45-year-old female with a history suggestive of pelvic floor dysfunction who has unremitting pelvic pain over the past 4-5 days as well as constipation. I think it is quite clear upon questioning the patient that her abdominal wall hernia is not the source of her pain. This is further supported by a physical examination. The patient's history is suggestive of pelvic floor dysfunction. Why she is having these acute issues is unclear to me. History does suggest the possibility of proctitis. I think consulting gastroenterology for evaluation with either a flexible sigmoidoscopy or a full colonoscopy is warranted. I remain available should my assistance be required. Please feel free to contact me if you have any questions.
[2016-08-18 13:51] VITALS: BP 116/81; PULSE 73; RESP 16; O2SAT 96
--- NOTE | 2016-08-18 15:56 | NUR ---
Social Work - Brief Note Data: Pt is a 45 y/o female admitted on 08/17/16 for intractable abdominal pain. Insurance is [employer] and PCP is [facility]. EMR reviewed. Readmit risk score is unavailable. SW met with Pt and her mother at bedside to discuss discharge planning. SW role explained. Pt was oriented x3. Pt resides at home with family and is independent with ADLs. Pt stated she has not completed DPOA/Advance Directive and SW provided information for her to review and complete. Pt had questions about insurance coverage, as she is leaving her job and coverage through her employer will end next week. SW provided information for [employer] exchange. Pt's family to provide transport home at discharge. SW provided phone number and plan on white board in room. No anticipated needs at this time. SW will continue to follow. Assessment: Pt who is independent at baseline. Plan: Pt will likely discharge home with family with no needs. SW will continue to follow should needs arise. RICH Baum
[2016-08-18 19:23] VITALS: BP 115/77; PULSE 63; RESP 18; O2SAT 96
[2016-08-19] MEDS: HYDROcodone-APAP 5-325 mg Tablet PO PRN ×3 (03:02→16:29)
--- NOTE | 2016-08-19 03:45 | NUR ---
Nausea Patient had some nausea and emesis early on in the shift. Patient stated she thought is was related to a stool softener she took prior to shift change. Patient states she wants to stay ahead of the pain she is experiencing 10. Patient A&OX3. Up independent to bathroom. Vitals stable.
[2016-08-19 04:03] VITALS: BP 102/67; PULSE 70; RESP 17; O2SAT 94
[2016-08-19 07:21] LABS: BASOPHILS % (AUTO) 0.3 % (0-3); EOSINOPHILS % (AUTO) 2.1 % (0-5); MONOCYTES % (AUTO) 7.2 % (4-12); Mean Corpuscular Hemoglobin 30.3 pg (27.0-35.0); Mean Corpuscular Volume 89.5 fL (81-100); NEUTROPHILS % (AUTO) 41.3 % (40-74); Platelet Count 187 bil/L (150-400)
[2016-08-19] MEDS: lamoTRIgine 100 mg Tablet PO SCH ×2 (08:43→21:51)
[2016-08-19] MEDS: Ondansetron 2 mg/mL 2 mL Inj IVPUSH PRN ×2 (11:24→21:26)
--- NOTE | 2016-08-19 13:10 | PCM.CHPMED ---
Subjective Date of Service: Aug 19, 2016 Provider requesting consult: Lenore Gibbons DO Primary Physician: Admitting Physician: Mandeep Roblero MD Primary Care Physician: Estiven,SHIRA Residency Attending Physician: Mandeep Roblero MD Chief Complaint: Chief Complaint: REASON FOR GI CONSULT: Lower abdominal pain with radiation to back in patient with history of multiple abdominal interventions History of Present Illness: GASTROENTEROLOGY CONSULT NOTE Ms. Peterson is an extremely pleasant 45 year old woman with a complex history of multiple abdominal interventions, including cholecystectomy, ANITA, tubal ligation , section, and appendectomy, that presented to [facility] 08/17 with increasing lower abdominal pain and difficulty with defecation. GI was consulted to assess if they could assist in the care of this patient. Ms. Peterson admits to being poorly compliant and pro-active with her own health, and shares that the pelvic/lower abdominal pain she is experiencing has been present for approximately two years. In the days leading to admission, her pain increased, and she was no longer able to tolerate that pain, and she then decided to seek emergent care. She was seen in the ED at a separate visit the day prior to this admission, and the initial CT report was benign, but the final read revealed a small fat containing hernia, which was suspect to be the culprit in her pain. She describes her abdominal pain as a 'knot' within her pelvic floor. She notes difficulty defecating, where she would have to manually push feces out her rectum through vaginal manipulation. She states she also occasionally notes fecal material when she wipes with urination, but denies any stool within the urinary stream. 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 States significant pain with bowel habits, and bowel movements are never well formed, they are formed as small, dark pellets. Admits to dyspareunia, and does not suspect STDs are an underlying feature, as she states she has been faithful to her , and she believes he is also faithful. Denies any recent gynecologic examinations or appointments to discuss symptoms. Denies any dysuria , hematuria, hematochezia, melena. No history colonoscopy or EGD. Reports family history of suspected colon cancer in father, but she shares it is difficult to determine, as his disease was widely metastatic, and she is unsure of the primary site. Denies any personal or family history of Crohn's/UC, celiac , IBD. Reports distant tobacco use that was infrequent; denies daily/chronic alcohol use. At the time of examination, she admits to some chills, and nausea. Denies any recent vomiting, fevers. General surgery was also consulted to evaluate etiology of her symptoms. PMH Past Medical History Pneumonitis Recent bereavement Pelvic pain Menorrhagia Anxiety and depression Major depressive disorder, single episode, unspecified Acute nasopharyngitis HSV-1 infection Surgical History Bilateral tubal ligation Cholecystectomy Breast reduction Appendectomy C section Diagnostic laparoscopy Home Medications From admission note Acyclovir 400mg q8h x7 days prn outbreaks Lamotrigine 100mg BID Lexapro 20mg daily Lorazepam 0.5mg daily prn anxiety Allergies: Coded Allergies: metoclopramide (Verified Adverse Reaction, Intermediate, Jitters, Agitation, "Makes me want to rip my skin off", 08/17/16) Zofran ok prochlorperazine (Verified Adverse Reaction, Intermediate, Agitation, "Makes me want to rip my skin off", 08/17/16) Zofran ok promethazine (Verified Adverse Reaction, Intermediate, Agitation, "Makes me want to rip my skin off", 08/17/16) Zofran ok Family History Family History Denies any known GI issues, such as Celiac, Crohn's/UC, IBD States unknown history of colon cancer, as father recently diagnosed with metastatic disease, patient does not know primary site Social History Hx Alcohol Use: Yes (occasionally)Hx Substance Use: NoHx Tobacco Use: No Smoking Status: Never Smoker Living Arrangement: with Family Exam Vital Signs Vital Sign - Last Date Time Temp Pulse Resp B/P Pulse Ox O2 Delivery O2 Flow Rate FiO2 08/19/16 04:03 36.9 70 17 102/67 94 Room Air Intake and Output 08/18/16 08/18/16 08/19/16 Cumulative From/Thru 15:00 23:00 07:00 08/17/16 19:12 - 08/19/16 06:37 Intake Total 900 ml 1791 ml 4852 ml Output Total 2150 ml 1910 ml 4260 ml Balance -1250 ml -119 ml 592 ml Intake Oral 900 ml 400 ml 2053 ml IV Total 1391 ml 2799 ml Output Urine Total 2150 ml 1910 ml 4260 ml # Voids 1 # Bowel Movements 0 0 0 General: Alert, Oriented X3, Cooperative, Mild Distress (anxiety noted) Eyes: Scleral Anicteric Nose: Mucous Membr Moist/[place] Mouth: Mucous Membr Moist/[place] Chest & Lungs: Auscultation (clear bilaterally with adequate air flow all francis) Cardiovascular: Regular Rate/Rhythm, No Murmurs/Rubs/Gallops Pulses: Radial (equal and bilateral) Abdomen: Tender (Bilateral lower quadrants, suprapubic), Non-distended, Normoactive bowel tones, Soft, Obese Genitourinary: [place] Absent Musculoskeletal: Normal Range of Motion Extremities: No cyanosis/clubbing/edma bilat Neurological: Grossly Neurologically Intact, Normal Speech (without slur) Lab and Diagnostics Result Diagram: 08/19/1664408/19/16644 Assessment & Plan Assessment GASTROENTEROLOGY CONSULT NOTE Ms. Peterson is an extremely pleasant 45 year old woman with a complex history of multiple abdominal interventions, including cholecystectomy, ANITA, tubal ligation , section, and appendectomy, that presented to [facility] 08/17 with increasing lower abdominal pain and difficulty with defecation. GI was consulted to assess if they could assist in the care of this patient. CT A/P w/con 08/18: Fat containing anterior pelvic wall hernia, which demonstrates mild groundglass density within it, possibly indicating strangulation. No change in appearance of lower uterine segment, which is enlarged and demonstrates heterogeneous low density shearing. Appendix not seen. No evidence of appendicitis. Assessments - Abdominal pain with radiation to back - Difficulty and pain with bowel movements; differential includes, but not limited to, pelvic floor dysfunction, proctitis, undiagnosed IBD, chronic constipation vs adhesion from prior surgery Recs - Colonoscopy tentative 08/20 - NPO/clears per endoscopy protocol - NPO midnight - GoLytely - Recommend gynecologic evaluation for possibility of rectocele - check celiac panel, tsh Thank you for this consult, we will happily follow along at this time. Total time: 60 minutes Problems: VTE Mechanical Devices: Intermittant Pneumatic CD Resuscitation Status: CPR: Attempt Resuscitation Damaris Alegria DO Aug 19, 2016 13:10 Santiago Dang MD Aug 19, 2016 15:08
[2016-08-19] MEDS: LORazepam 1 mg Tablet PO PRN (13:30)
[2016-08-19 13:48] VITALS: BP 149/87; PULSE 66; RESP 18; O2SAT 96
--- NOTE | 2016-08-19 14:19 | NUR ---
NUTRITION ASSESSMENT: ASSESS: 45 YO female admitted for intractable abdominal pain, workup pending. Pt is tentatively scheduled for colonoscopy on 08/20. Pt has been on Clear liquids x 2 days. PMHx: Pneumonitis, pelvic pain, menorrhagia, anxiety, depression, HSV-1 infection, acute nasopharyngitis, poss rectocele. LABS: Reviewed. Alb 3.5. MEDS: Reviewed. GI: No BM reported since admit. CURRENT WT: 90.2 kg. DIET: Clear liquids x 2 day. PO 25-100%. EST. NEEDS: 4917-7399 kcals (20-22 kcals/kg BW), 60-75 g protein (1.2-1.5 g/kg IBW) NUTRITION DIAGNOSIS: 1.) Inadequate oral intake related to decreased ability to consume sufficient energy as evidenced by clear liquid diet status x 2 days. NUTRITION INTERVENTION: 1.) Will add Gelatein and ensure clear all trays. 2.) Will continue to await timely advancement of diet. MONITOR / EVAL: PO intake, diet advancement / tolerance, labs, nutritional status. Follow per high nutrition risk guidelines.
[2016-08-19] MEDS ORDERED: PEG/Electrolytes 4,000 mL Solution PO ONE (16:00)
--- NOTE | 2016-08-19 19:22 | NUR ---
Activity Pt had increased pain and anxiety during morning, IV medications were discontinued and this upset pt along with meeting GI doctor. Medications given and next due times written on board to give pt more control. Pt up and ambulating safely in room. Pt did have one episode of increasing nausea and vomiting. Bowel prep started and pt having multiple loose stools. Pt understands she will be NPO 3 hours prior to procedure and can have only clear liquids now.
[2016-08-19 20:07] VITALS: BP 131/85; PULSE 60; RESP 16; O2SAT 99
--- NOTE | 2016-08-19 20:32 | PCM.PNMED ---
Subjective Date of Service Aug 19, 2016 Subjective The patient is examined. She is informed regarding the GYMNASTICS COACH call to dr. baker in his decision to see her as outpatient. He feels that as a patient' s room is not set up for proper GYMNASTICS COACH exam he would rather see her as outpatient as she is not emergently sick as well. She is feeling likely will inform her that they will colonoscopy tomorrow a.m. no other concerns are expressed. States she has not had a bowel movement since coming here. But she is also not eating much only eating soft and liquid diet Exam Vital Signs Vital Sign - Last Date Time Temp Pulse Resp B/P Pulse Ox O2 Delivery O2 Flow Rate FiO2 08/19/16 20:07 36.7 60 16 131/85 99 Room Air Intake and Output 08/18/16 08/18/16 08/19/16 Cumulative From/Thru 15:00 23:00 07:00 08/17/16 19:12 - 08/19/16 06:37 Intake Total 900 ml 1791 ml 4852 ml Output Total 2150 ml 1910 ml 4260 ml Balance -1250 ml -119 ml 592 ml Intake Oral 900 ml 400 ml 2053 ml IV Total 1391 ml 2799 ml Output Urine Total 2150 ml 1910 ml 4260 ml # Voids 1 # Bowel Movements 0 0 0 Exam Gen.: No acute distress HEENT: Normal atraumatic Heart: Regular rate and rhythm. Lungs: No crackles or wheezes. Auscultation Abdomen: States abdomen mildly tender to gentle palpation, normal bowel sounds are present Neurological: No focal deficits Psych: Appears to be teary-eyed at times IVs and Medications IV Fluids NSS 100 mL per hour Medications Reviewed: Medications were reviewed in detail Lab and Diagnostics Result Diagram: 08/19/16 0645 08/19/16 0645 X-Rays, CTs and MRIs CT ABDOMEN AND PELVIS WITH CONTRAST 08/17 IMPRESSION: 1. Fat containing anterior pelvic wall hernia, which demonstrates mild groundglass density within it, possibly indicating strangulation. 2. No change in appearance of lower uterine segment, which is enlarged and demonstrates heterogeneous low density shearing 3. Appendix not seen. No evidence of appendicitis. 4. Findings discussed with Dr. Brown on 08.17.16 at 0838 hrs. Dictated by: Azar Waldron M.D. on 08/17/2016 at 8:25 Approved by: Azar Waldron M.D. on 08/17/2016 at 8:38 Assessment & Plan Maribel Peterson is a 45 year old female with Depression,Anxiety and multiple abdominal surgeries presents to the Emergency department complaining of ongoing lower pelvic pain 1. Acute Abdominal/Pelvic pain due to Anterior pelvic wall hernia with possible strangulation. Present on admission Dr Rojas recommends no surgical intervention at this point. NO liver dysfunction. - clear liquid diet, advance as tolerated - pain control with [place] PO PRN and Toradol 15 mg every 8 hours when necessary - Surgical consult requested: They do not feel patient needs an emergent surgery , recommended GI consult - consider a Gynecological evaluation tomorrow: GYMNASTICS COACH is counseled that. Dr. Beach has seen the patient 2 years ago and states that he will see patient as outpatient -- GI has seen the patient to rule out colon malignancies and they will consider doing a colonoscopy tomorrow morning 2. Depression and Anxiety. Chronic Mood stable - continue Lamotrigine and Lexapro - Acetaminophen as needed for mild pain/fever/headache - Bowel regimen as needed - Antiemetic as needed Patient is most likely be discharged home tomorrow after confirming the plan Gen. surgery. Outpatient follow with GYMNASTICS COACH will be recommended . Pain Evaluation: Adequate Pain Control VTE Mechanical Devices: Intermittant Pneumatic CD Resuscitation Status: CPR: Attempt Resuscitation Lenore Gibbons DO Aug 19, 2016 20:32
[2016-08-19] MEDS: Ketorolac 15 mg/mL Inj IVPUSH PRN (21:27)
[2016-08-20] VITALS (7 sets, daily range): BP systolic 98–149; BP diastolic 58–83; PULSE 54–71; RESP 14–16; O2SAT 96–99
--- NOTE | 2016-08-20 04:02 | NUR ---
Prep Patient finished taking bowel prep prior to 1999. Patient NPO since midnight. Patient had some nausea at the beginning of shift,4mg Zofran given and no complaints since. Patient states Toradol does a good job of managing her pain, currently q8. Colonoscopy scheduled today. Patient saline locked. Room air.
[2016-08-20 06:42] LABS: BASOPHILS % (AUTO) 0.2 % (0-3); EOSINOPHILS % (AUTO) 1.9 % (0-5); MONOCYTES % (AUTO) 8.7 % (4-12); Mean Corpuscular Hemoglobin 30.2 pg (27.0-35.0); Mean Corpuscular Volume 87.7 fL (81-100); NEUTROPHILS % (AUTO) 53.1 % (40-74); Platelet Count 212 bil/L (150-400)
[2016-08-20] MEDS: lamoTRIgine 100 mg Tablet PO SCH (08:48)
[2016-08-20] MEDS: Ondansetron 2 mg/mL 2 mL Inj IVPUSH PRN (10:09)
[2016-08-20] MEDS: Ketorolac 15 mg/mL Inj IVPUSH PRN (10:09)
[2016-08-20] MEDS: HYDROcodone-APAP 5-325 mg Tablet PO PRN ×2 (10:10→14:22)
--- NOTE | 2016-08-20 13:56 | PCM.DIMED ---
Discharge Instructions Date of Service Aug 20, 2016 Dates of Hospitalization Aug 17, 2016 at 22:34 Discharge Diagnosis Discharge Diagnosis Pelvic Foor Dysfunction, Abdominal fat hernia, depression/anxiety Medication Instructions Please toradol sparingly. After you complete them, you may take OTC naproxen for pain relief as needed. You can take 250 mg naproxen PO BIDPRN for a week. Please do not take both at the same time. Diet No restrictions, Other (high fiber) Activity No restrictions Call your provider Fever or Chills, Shortness of breath, Bleeding, Chest pain, Vomitting, Excessive diarrhea, Weakness (unilateral), Other Patient Instructions Please follow up with BOOK AGENT Dr. Shoemaker in 2 weeks Please follow up with your PCP in 1 week. She can go to the residency clinic in [facility]. Lenore Gibbons DO Aug 20, 2016 13:56
[2016-08-20] MEDS ORDERED: NAPR250T PO (13:59)
[2016-08-20] MEDS ORDERED: KETO10TA PO (13:59)
[2016-08-20] MEDS ORDERED: POLY17PO6 PO (13:59)
[2016-08-20] MEDS ORDERED: Lactated Ringer's 1,000 ML IV ONE (14:20)
[2016-08-20] MEDS: LORazepam 1 mg Tablet PO PRN (14:22)
--- NOTE | 2016-08-20 14:43 | NUR ---
Social Work - Readiness for Discharge Data: EMR reviewed. Pt is on day 3 of hospitalization for intractable abdominal pain. Pt to follow up with outpatient services. Pt's family to provide transport home at discharge. No anticipated needs at this time. SW will continue to follow. Assessment: Pt who is independent at baseline. Plan: Pt will likely discharge home with family with no needs. SW will continue to follow should needs arise. RICH Ribera
--- NOTE | 2016-08-20 15:14 | PCM.HPANE ---
Patient Data Surgeon Admitting Provider:Mandeep Roblero MD Attending Provider:Mandeep Roblero MD Primary Care Physician:Clinic,[facility] Residency Other Provider: Reason for Visit Intractable Abdominal Pain Ht/WT & BMI Height (Feet): 5 Height (Inches): 2.00 Weight (Kilograms): 90.200 Body Mass Index 36.59 Allergies Coded Allergies: metoclopramide (Verified Adverse Reaction, Intermediate, Jitters, Agitation, "Makes me want to rip my skin off", 08/17/16) Zofrsanthosh ok prochlorperazine (Verified Adverse Reaction, Intermediate, Agitation, "Makes me want to rip my skin off", 08/17/16) Zofrsanthosh ok promethazine (Verified Adverse Reaction, Intermediate, Agitation, "Makes me want to rip my skin off", 08/17/16) Zolisa ok Past Anesthesia History Anesthesia History: Denies:: Anesthesia Reactions, Malignant Hyperthermia Diabetes History Hx Diabetes?: No MRSA MRSA: No Medications Active Scripts Naproxen 250 Mg [id number] Mg PO BID PRN For Pain 7 Days Ref 0 Prov:Lenore Gibbons DO 08/20/16 Ketorolac Tromethamine 10 Mg Xhslur03 Mg PO TID #10 TABLET Prov:Lenore Gibbons DO 08/20/16 Polyethylene Glycol 3350 (Miralax)17 Gm Powd.pack17 Gm PO DAILY PRN For Constipation 10 Days Prov:Lenore Gibbons DO 08/20/16 Reported Medications Lorazepam 0.5 Mg Tablet1 Mg PO TID PRN For Anxiety Ref 0 08/17/16 Hydroxyzine Pamoate (HydrOXYzine Pamoate)25 Mg Heabqlp15 Mg PO Q6 PRN For Itching Ref 0 08/17/16 Acyclovir 400 Mg Vaidly943 Mg PO TID PRN HERPES OUTBREAK Ref 0 08/17/16 Escitalopram Oxalate (Lexapro)20 Mg Zpwsjh02 Mg PO HS 30 Days Ref 0 08/17/16 Lamotrigine 200 Mg Vwdsfu405 Mg PO BID Ref 0 08/17/16 Doxepin 10 Mg Aixevqd37 Mg PO HS PRN For Insomnia 08/17/16 Discontinued Reported Medications Medroxyprogesterone Acetate (Depo-Provera)150 Mg/Ml [id number] Mg IM q3 months 11/06/14 History History of ENT Problems?: Yes HEENT History: Denies:: Cataracts Dysphagia Glaucoma Sinus Problem Hx of Heart Problems?: Yes Cardiovascular History: Positive for:: Chest Pain (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) Irregular Heartbeat (REPORTED BY PT) Denies:: Cardiac Surgery Congestive Heart Failure Edema Heart Murmur Hypertension Pacemaker Thrombophlebitis Hx of Respiratory Problem?: Yes Respiratory History: Positive for:: Cough (HOARSENESS) Dyspnea (INTERMITTANT) Denies:: Asthma COPD Chest Surgery Emphysema Hemoptysis Pneumonia Tuberculosis Use of C-PAP Machine Hx Neurologic Problems?: Yes Neurological History: Positive for:: Dizziness Headaches Denies:: Alzheimer's Disease CVA Dementia Parkinson's Disease Seizures Hx of GI Problems?: Yes Gastrointestinal History: Denies:: Diverticulitis (DIVERTICULOSIS) Gastroesphageal Reflux Gastrointestinal Bleeding Heartburn Hepatitis Hiatal Hernia Rectal Bleeding (HX HEMORRHOIDS) Hx of Problems?: Yes Genitourinary History: Positive for:: Kidney Stones Urinary Tract Infection (hx, but pt states "not frequently" ) Denies:: HX of Hemodialysis HX of Peritoneal Dialysis: No Female Hx: Positive for:: Problems with Breasts? (S/P LT BREAST BX (BENIGN), BREAST REDUCTION) Denies:: Currently (hx tubal) Endometriosis Pelvic Inflammatory Skin History: Denies:: History Skin Disorders? Pressure Ulcers Hx Musculoskeletal Problems?: No Hx of Psycho/Social Problems?: No Psycho Social History: Positive for:: Anxiety Bipolar Disorder (not sure) Hx Depression Denies:: Suicide Attempt Hx Surgeries?: Yes (APPY, ADENOLYSIS X2,APPY,BREAST REDUCTION, tayla) Hx Any Other Health Problems?: Yes Other History: Positive for:: Hospitalization (ABD PAIN 11/2012) Denies:: Cancer Endocrine Disease Thyroid Disease History Blood Transfusions: Positive for:: Accept Blood Products? Denies:: Blood Transfuse Reaction Blood Transfusions Hx Diabetes: No Hx Alcohol Use: Yes (occasionally)Hx Substance Use: No Smoking Status: Never Smoker Have You Smoked inLast 12 mo: No Stop/Bang Treated for Sleep Apnea?: No Do You Have a CPAP Machine?: No S-Snoring: Do You Snore Loudly: Yes T-Tired: feel tired, fatigued: Yes O-Obsered: Observed not breath: No P-Blood Pressure: treated: No B- Body Mass Index > 35 kg/m2: Yes A- Age over 50: No N- Neck Large Circumference: No G- Gender Male: No FOREST Total Score: 4 FOREST Risk Assessment: Low Risk, <3 Yes Risk Assessment Category Category 1A: Patient has history of documented sleep apnea, and HAS NOT received any narcotic, sedative or anesthesia administration during this stay. Category 1B: Patient has history of documented sleep apnea, and HAS received any narcotic , sedative or anesthesia administration during this stay Category 2: Patient has SUSPECTED Obstructive Sleep Apnea, and HAS received any narcotic , sedative or anesthesia administration during this stay. Category 3: Patient has SUSPECTED Obstructive Sleep Apnea and HAS NOT received narcotic, sedative or anesthesia administration during this stay. Category 4: Outpatient in Procedural Areas with known sleep apnea or who screen positive for High Risk via the STOP/BANG questionnaire. Exam Exam Vital Signs Vital Signs Date Time Temp Pulse Resp B/P Pulse Ox O2 Delivery O2 Flow Rate FiO2 08/20/16 15:12 36.5 57 14 129/78 97 Room Air 08/20/16 14:05 37.1 59 16 149/83 98 Room Air General Appearance: Alert, Oriented X3, Cooperative, No Acute Distress HEENT/AIRWAY: MP 2 Lungs: Clear to Auscultation, Normal Air Movement Heart: Exam Unremarkable, Regular Rate/Rhythm, No Murmurs/Rubs/Gallops Meds/Labs/Diagnostics Admission Meds Current Medications Polyethylene Glycol/ Electrolytes (Colyte) 4,000 ml ONCE ONCE PO Last administered on 08/19/16t 16:29; Start 08/19/16 at 16:00; Stop 08/19/16 at 16:01 ; Status DC Labs Test 08/17/16 19:35 08/19/16 06:45 08/20/16 06:20 Lactic Acid Level 0.8mmol/L (0.4-2.0) Lipase 25U/L (13-60) Thyroid Stimulating Hormone (TSH) 1.830uIU/mL (0.450-4.500) Free Thyroxine 1.06ng/dL (0.82-1.77) White Blood Count 4.7th/mm3 (3.8-10.1) Red Blood Count 4.30mil/mm3 (3.90-5.20) Hemoglobin 13.0g/dL (12.0-15.6) Hematocrit 37.7% (35.0-46.0) Mean Corpuscular Volume 87.7fL (81-100) Mean Corpuscular Hemoglobin 30.2pg (27.0-35.0) Mean Corpuscular Hemoglobin Concent 34.5% (32.0-37.0) Red Cell Distribution Width 12.2% (12.3-15.4) Platelet Count 212bil/L (150-400) Neutrophils (%) (Auto) 53.1% (40-74) Lymphocytes (%) (Auto) 35.9% (14-46) Monocytes (%) (Auto) 8.7% (4-12) Eosinophils (%) (Auto) 1.9% (0-5) Basophils (%) (Auto) 0.2% (0-3) Sodium Level 140mEq/L (134-144) Potassium Level 4.2mEq/L (3.5-5.2) Chloride Level 104mEq/L (97-108) Carbon Dioxide Level 23mmol/L (18-29) Blood Urea Nitrogen 7mg/dL (6-24) Creatinine 0.81mg/dL (0.57-1.00) Estimat Glomerular Filtration Rate 110mL/min (>59) Glucose Level 94mg/dL (60-99) Calcium Level 9.5mg/dL (8.5-10.1) Total Bilirubin 0.5mg/dL (0.0-1.2) Aspartate Amino Transf (AST/SGOT) 35U/L (0-50) Alanine Aminotransferase (ALT/SGPT) 49U/L (0-32) Alkaline Phosphatase 82U/L (25-150) Total Protein 5.9g/dL (6.4-8.4) Albumin 3.7g/dL (3.4-5.0) Plan Impression Patient chart reviewed, patient interviewed and anesthestic plan with risks, benefits, and alternatives discussed, and informed consent obtained. NPO Status: 11/07/14 ASA Physical Status: ASA2 Mod Systemic Disease Anesthetic Plan: MAC Bene/Risks/Altern/Consents: Yes HP Complete Prior to Induction: Yes Patti Espinoza MD Aug 20, 2016 15:14
[2016-08-20] MEDS ORDERED: Lactated Ringer's 1,000 ML IV SCH (15:39)
[2016-08-20] MEDS ORDERED: MetoCLOpramide 5 mg/mL 2 mL Inj IVPUSH PRN (15:40)
[2016-08-20] MEDS ORDERED: Ondansetron 2 mg/mL 2 mL Inj IVPUSH PRN (15:40)
--- NOTE | 2016-08-20 15:40 | PCM.ANEP1 ---
Post Anesthesia Phase 1 PACU Phase 1 Assessment Date of Service: Aug 19, 2016 Vital Signs Vital Signs Date Time Temp Pulse Resp B/P Pulse Ox O2 Delivery O2 Flow Rate FiO2 08/20/16 15:12 36.5 57 14 129/78 97 Room Air 08/20/16 14:05 37.1 59 16 149/83 98 Room Air Anesthetic Administered: MAC Level of Alertness: Awake, talking FUNK's with Equal Strength: Yes Pain: No Pain Scale Score: 4 Nausea or Vomiting: No Oxygen Delivery: Room Air Lungs: Clear to Auscultation, Normal Air Movement Patti Espinoza MD Aug 20, 2016 15:40
--- NOTE | 2016-08-20 16:44 | PCM.ANEP2 ---
Post Anesthesia Evaluation ASA/CMS Post Anesthesia VS in Patient's Normal Range?: Yes Resp Stable; Airway Patent?: Yes CV Function & Hydration Stable: Yes Mental Status Recovered?: Yes Pain control Satisfactory?: Yes N/V Control Satisfactory?: Yes Patti Espinoza MD Aug 20, 2016 16:44
[2016-08-20] MEDS ORDERED: fentaNYL-PF 50 mCg/mL 2 mL Inj ONE (17:57)
[2016-08-20] MEDS ORDERED: Propofol 10,000 mCg/mL 20 mL Inj ONE (17:57)
--- NOTE | 2016-08-20 19:29 | NUR ---
Discharge Pt discharged at 1755 with friend to private vehicle. Pt has no c/o pain. VSS, FUNK, A&O x 3. Has discharge instructions, care notes and rx's. Pt understands to f/u out pt for ongoing issues. All questions answered and has all belongings. IV removed intact.
--- NOTE | 2016-08-20 20:23 | PCM.DC.MED ---
Discharge Summary Date of Service Aug 20, 2016 Dates of Hospitalization Date of Hospital Admission Aug 17, 2016 at 22:34 Date of Discharge: Aug 20, 2016 Providers: Admitting Physician: Mandeep Roblero MD Primary Care Physician: SHIRA Jean-Baptiste Residency Attending Physician: Mandeep Robleor MD Diagnosis at Time of Discharge Diagnosis at Time of Discharge Pelvic Foor Dysfunction, Abdominal fat hernia, depression/anxiety Consultations Gen. surgery, GI Procedures XRay, CTs & MRIs CT ABDOMEN AND PELVIS WITH CONTRAST 08/17 IMPRESSION: 1. Fat containing anterior pelvic wall hernia, which demonstrates mild groundglass density within it, possibly indicating strangulation. 2. No change in appearance of lower uterine segment, which is enlarged and demonstrates heterogeneous low density shearing 3. Appendix not seen. No evidence of appendicitis. 4. Findings discussed with Dr. Brown on 08.17.16 at 0838 hrs. Dictated by: Azar Waldron M.D. on 08/17/2016 at 8:25 Approved by: Azar Waldron M.D. on 08/17/2016 at 8:38 Invasive Procedures Colonoscopy 08/20/16 Brief History GASTROENTEROLOGY CONSULT NOTE Ms. Peterson is an extremely pleasant 45 year old woman with a complex history of multiple abdominal interventions, including cholecystectomy, ANITA, tubal ligation , section, and appendectomy, that presented to [facility] 08/17 with increasing lower abdominal pain and difficulty with defecation. GI was consulted to assess if they could assist in the care of this patient. Ms. Peterson admits to being poorly compliant and pro-active with her own health, and shares that the pelvic/lower abdominal pain she is experiencing has been present for approximately two years. In the days leading to admission, her pain increased, and she was no longer able to tolerate that pain, and she then decided to seek emergent care. She was seen in the ED at a separate visit the day prior to this admission, and the initial CT report was benign, but the final read revealed a small fat containing hernia, which was suspect to be the culprit in her pain. She describes her abdominal pain as a 'knot' within her pelvic floor. She notes difficulty defecating, where she would have to manually push feces out her rectum through vaginal manipulation. She states she also occasionally notes fecal material when she wipes with urination, but denies any stool within the urinary stream. 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 States significant pain with bowel habits, and bowel movements are never well formed, they are formed as small, dark pellets. Admits to dyspareunia, and does not suspect STDs are an underlying feature, as she states she has been faithful to her , and she believes he is also faithful. Denies any recent gynecologic examinations or appointments to discuss symptoms. Denies any dysuria , hematuria, hematochezia, melena. No history colonoscopy or EGD. Reports family history of suspected colon cancer in father, but she shares it is difficult to determine, as his disease was widely metastatic, and she is unsure of the primary site. Denies any personal or family history of Crohn's/UC, celiac , IBD. Reports distant tobacco use that was infrequent; denies daily/chronic alcohol use. At the time of examination, she admits to some chills, and nausea. Denies any recent vomiting, fevers. General surgery was also consulted to evaluate etiology of her symptoms. Hospital Course Maribel Peterson is a 45 year old female with Depression,Anxiety and multiple abdominal surgeries presents to the Emergency department complaining of ongoing lower pelvic pain 1. Acute Abdominal/Pelvic pain due to Anterior pelvic wall hernia with possible strangulation. Present on admission Dr Rojas recommends no surgical intervention at this point. NO liver dysfunction. - clear liquid diet, advance as tolerated - pain control with [place] PO PRN and Toradol 15 mg IV every 8 hours when necessary were given: She is given 3 days of by mouth ketorolac. She is asked to use naproxen [id number] 250 mg twice a day when necessary for 1 more week upon completing the Toradol. - Surgical consult requested: They do not feel patient needs an emergent surgery , recommended GI consult - consider a Gynecological evaluation tomorrow: [employer] is. Dr. Shoemaker was contacted and he states he would see the patient outpatient as it very hard to examine properly without any [employer] bed. -- GI has seen the patient to rule out colon malignancies and they performed a colonoscopy. Preliminary report is that they found no acute abnormalities. -- On the day of discharge patient's pain is well controlled and NSAIDs. She is agreeable to following up with [employer] as outpatient. 2. Depression and Anxiety. Chronic Mood stable - continue Lamotrigine and Lexapro - Acetaminophen as needed for mild pain/fever/headache - Bowel regimen as needed - Antiemetic as needed . Exam Vital Signs (Last) Date Time Temp Pulse Resp B/P Pulse Ox O2 Delivery O2 Flow Rate FiO2 08/20/16 16:47 36.7 62 16 145/81 97 Room Air Exam Gen.: No acute distress laying in bed HEENT normocephalic, atraumatic Heart regular rate and rhythm no S3-S4 murmurs lungs clear to auscultation bilaterally with crackles or wheezes Abdomen soft nontender normal bowel sounds Extremities: Negative for edema Psych: Mildly anxious affect is pleasant more neutral Neuro no focal deficits Test 08/17/16 19:35 08/19/16 06:45 08/20/16 06:20 Lactic Acid Level 0.8mmol/L (0.4-2.0) Lipase 25U/L (13-60) Thyroid Stimulating Hormone (TSH) 1.830uIU/mL (0.450-4.500) Free Thyroxine 1.06ng/dL (0.82-1.77) White Blood Count 4.7th/mm3 (3.8-10.1) Red Blood Count 4.30mil/mm3 (3.90-5.20) Hemoglobin 13.0g/dL (12.0-15.6) Hematocrit 37.7% (35.0-46.0) Mean Corpuscular Volume 87.7fL (81-100) Mean Corpuscular Hemoglobin 30.2pg (27.0-35.0) Mean Corpuscular Hemoglobin Concent 34.5% (32.0-37.0) Red Cell Distribution Width 12.2% (12.3-15.4) Platelet Count 212bil/L (150-400) Neutrophils (%) (Auto) 53.1% (40-74) Lymphocytes (%) (Auto) 35.9% (14-46) Monocytes (%) (Auto) 8.7% (4-12) Eosinophils (%) (Auto) 1.9% (0-5) Basophils (%) (Auto) 0.2% (0-3) Sodium Level 140mEq/L (134-144) Potassium Level 4.2mEq/L (3.5-5.2) Chloride Level 104mEq/L (97-108) Carbon Dioxide Level 23mmol/L (18-29) Blood Urea Nitrogen 7mg/dL (6-24) Creatinine 0.81mg/dL (0.57-1.00) Estimat Glomerular Filtration Rate 110mL/min (>59) Glucose Level 94mg/dL (60-99) Calcium Level 9.5mg/dL (8.5-10.1) Total Bilirubin 0.5mg/dL (0.0-1.2) Aspartate Amino Transf (AST/SGOT) 35U/L (0-50) Alanine Aminotransferase (ALT/SGPT) 49U/L (0-32) Alkaline Phosphatase 82U/L (25-150) Total Protein 5.9g/dL (6.4-8.4) Albumin 3.7g/dL (3.4-5.0) Discharge Medications Discharge Medications Escitalopram Oxalate (Lexapro) 20 Mg Tablet 20 MG PO HS (Reported) Ketorolac Tromethamine (Ketorolac Tromethamine) 10 Mg Tablet 10 MG PO TID Prescribed by: LENORE FITCH DO Lamotrigine (Lamotrigine) 200 Mg Tablet 200 MG PO BID (Reported) As needed Acyclovir (Acyclovir) 400 Mg Tablet 400 MG PO TID PRN PRN HERPES OUTBREAK ( Reported) Doxepin (Doxepin) 10 Mg Capsule 10 MG PO HS PRN PRN For Insomnia (Reported) Hydroxyzine Pamoate (HydrOXYzine Pamoate) 25 Mg Capsule 25 MG PO Q6 PRN PRN For Itching (Reported) Lorazepam (Lorazepam) 0.5 Mg Tablet 1 MG PO TID PRN PRN For Anxiety (Reported) Naproxen (Naproxen) 250 Mg Tablet 250 MG PO BID PRN PRN For Pain Prescribed by: LENORE FITCH DO Polyethylene Glycol 3350 (Miralax) 17 Gm Powd.pack 17 GM PO DAILY PRN PRN For Constipation Prescribed by: LENORE FITCH DO Additional med instructions Please toradol sparingly. After you complete them, you may take OTC naproxen for pain relief as needed. You can take 250 mg naproxen PO BIDPRN for a week. Please do not take both at the same time. Followup Plan Discharge Diet: No restrictions, Other (high fiber) Discharge Activity: No restrictions Patient Instructions Please follow up with [employer] Dr. Shoemaker in 2 weeks Please follow up with your PCP in 1 week. She can go to the residency clinic [facility]. Lenore Fitch DO Aug 20, 2016 20:23
--- NOTE | 2016-08-21 05:20 | ENDO ---
[address] [id number] ENDOSCOPY PROCEDURE PATIENT: USAMA FRANKEL : 1970 MR#: [id number] ADMIT: 08/17/2016 JOB ID: [id number] OPERATION: Colonoscopy. PREOPERATIVE DIAGNOSIS: Change in bowel habits/constipation. POSTOPERATIVE DIAGNOSES: Sigmoid diverticulosis. ANESTHESIA: Monitored anesthesia care. COMPLICATIONS: None. BLOOD LOSS: Minimal description. DESCRIPTION OF PROCEDURE: After risks and benefits explained to the patient, informed consent was obtained. After anesthesia administered, a colonoscope was inserted from rectum to cecum. Mucosa carefully examined. Prep of the patient was fair. After procedure, the scope was withdrawn and procedure terminated. FINDINGS: Upon inspection of the anus, no masses, hemorrhoids, ulcers or fissures were seen throughout the entire examination. There was mild sigmoid diverticulosis. No polyps or masses were seen. Retroflexion normal. IMPRESSIONS: Mild sigmoid diverticulosis, otherwise normal colonoscopy. RECOMMENDATIONS: 1. High-fiber diet. 2. The patient okay to discharge home today. 3. Start clear liquid diet. 4. Follow up primary care doctor.
== END 2016-08-20 17:58 | disposition home or self-care (01) ==
LOC: SED 19:02 → OSC 22:34
PROVIDERS: ADMIT Hospitalist; ATTEND Hospitalist
DX: M99.05 Segmental and somatic dysfunction of pelvic region (principal); K45.8 Other specified abdominal hernia without obstruction or gangrene; F32.9 Major depressive disorder, single episode, unspecified; F41.9 Anxiety disorder, unspecified; R10.30 Lower abdominal pain, unspecified; K59.00 Constipation, unspecified; M54.89 Other dorsalgia; K57.30 Diverticulosis of large intestine without perforation or abscess without bleeding; R06.00 Dyspnea, unspecified; Z87.442 Personal history of urinary calculi; Z88.8 Allergy status to other drugs, medicaments and biological substances
CPT/HCPCS: 36415; 45378; 80053; 83516; 83605; 83690; 84439; 84443; 85025; 96361; 96374; 96375; 96376; 99285; G0378; J1170; J1885; J2250; J2270; J2405; J3010; J7030; J7120